=== PATIENT | female | born 1960 | race African-American/Black ===

== ENCOUNTER → 2024-05-10 | Day surgery (SDC) | payer MEDICARE ==
[2024-05-09 13:15] LABS: BASOPHILS % 0.3 % (0.0-1.0); EOSINOPHILS # (AUTO) 0.1 (0.0-0.4); HEMOGLOBIN 14.1 g/dL (12.0-16.0); LYMPHOCYTES # (AUTO) 2.2 (1.0-3.2); LYMPHOCYTES % 36.2 % (18.0-39.1); MEAN CORPUSCULAR HEMOGLOBIN 31.5 pg (28-32); MEAN CORPUSCULAR VOLUME 98.2 fL (81-99); MONOCYTES # (AUTO) 0.5 (0.2-0.8); MONOCYTES % 7.9 % (4.4-11.3); NEUTROPHILS # (AUTO) 3.2 (2.1-6.9); NEUTROPHILS % 54.3 % (38.7-80.0); PLATELET COUNT 223 x10e3/uL (140-360); RED BLOOD COUNT 4.48 x10e6/uL (3.6-5.1); RED CELL DISTRIBUTION WIDTH 12.5 % (11.7-14.4); WHITE BLOOD COUNT 5.97 x10e3/uL (4.8-10.8)
[~2024-05-10] MED LIST: ARTHRITIS PAIN650 MG PO; CELEBREX200 MG; CYCLOBENZAPRINE10 MG PO; ELIQUIS5 MG PO; ENBREL; FAMOTIDINE20 MG PO; FLONASE ALLERG9.9 ML INH; FOLIC ACID; GLUCAGON FOR INJ 1 MG VIAL ONE; LIDOCAINE HCL 2% LOCAL INJ 5 ML SDV VIAL INJ ONE; METHOTREXATE; METOCLOPRAMIDE HCL 10 MG/2ML VIAL ONE; PREDNISONE1 MG; PROPOFOL IV EMULSION 10 MG/ML 20 ML VIAL ONE; TANGY TANGERINE PO; VITAMIN D5000 UNIT; [UNRECOGNIZED DRUG - OTHER] PO
[2024-05-10] MEDS: LACTATED RINGER'S 1,000 ML ONE (06:07)
[2024-05-10 10:04] VITALS: TEMP 97.1
[2024-05-10 10:25] VITALS: BP 117/81; PULSE 82; RESP 16; O2SAT 97
== END | disposition home or self-care (01) ==
LOC: OR 05:51
PROVIDERS: ATTEND Internal Medicine Gastroenterology
DX: Z12.11 Encounter for screening for malignant neoplasm of colon (principal); K21.9 Gastro-esophageal reflux disease without esophagitis; E66.9 Obesity, unspecified; M19.90 Unspecified osteoarthritis, unspecified site; D86.9 Sarcoidosis, unspecified; Z88.1 Allergy status to other antibiotic agents; Z01.810 Encounter for preprocedural cardiovascular examination; Z01.812 Encounter for preprocedural laboratory examination; Z79.02 Long term (current) use of antithrombotics/antiplatelets; Z79.899 Other long term (current) drug therapy; Z86.711 Personal history of pulmonary embolism; Z86.718 Personal history of other venous thrombosis and embolism
CPT/HCPCS: 36415; 85025; 93005; G0121; J1610; J2001; J2704; J2765; J7121; 45378